=== PATIENT | female | born 1965 | race Two or more races ===

== ENCOUNTER 2024-09-26 18:04 | Emergency (ER) | payer MEDICAID, OTHER ==
[~2024-09-26] VITALS: Ht 152.4 cm; Wt 75.8 kg
--- NOTE | 2024-09-26 19:03 | ED.PDOC ---
History of Present Illness(SKN HPI Comments 59-year-old female with PMHx Sepsis presents with a chief complaint of wound to right buttock x onset 09/18/2024. Patient states that she thought maybe she had been bite by a spider and the area became red, puffy, and had pus drainage. Patient reports that it is painful for her to sit down. Patient mentions that she has had an abscess before and that they had to cut it and drain it before. Patient mentions that she also had some nausea and vomiting on 09/19/2024, but that has since subsided. No other symptoms or modifying factors present at this time. Chief Complaint: Abscess Time Seen by MD: 18:53 Primary Care Provider: HUMBERTO History of Present Illness: Medications, Allergies Allergies: Coded Allergies: Gabapentin (Verified Allergy, Unknown, 09/26/24) Lisinopril (Verified Allergy, Unknown, 09/26/24) Metformin (Verified Allergy, Unknown, 09/26/24) Home Meds Active Scripts Mupirocin Calcium (Topical) (MUPIROCIN) 2 % Cre, 2 % EX BID for 10 Days, #30 CRE Prov:RHETT ARTHUR MD 09/26/24 Clindamycin Hcl (Clindamycin Hcl) 300 Mg Cap, 1 CAP PO BID for 7 Days, #14 CAP Prov:RHETT ARTHUR MD 09/26/24 Information Source: Patient Mode of Arrival: Ambulatory Severity: Moderate Timing: Days Duration: Since onset Prehospital treatment: None Location: Buttock (RIGHT) Mechanism: Spontaneous Onset Developed: Generalized erythema Object: None Condition of Object: None Wound Type: Abscess Immunization Status of Animal: NA Tetanus: Unknown History of: None Associated Signs and Symptoms: N/V, Redness, Pus Past Medical History Past Medical History (Other): SEPSIS Surgical History: Denies all surgeries PRORATION 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 Family History Family History: Reviewed,noncontributory to illness Social History Smoker: Non-Smoker Alcohol: Denies ETOH Use Drugs: Denies Drug Use Lives In: Home Constitutional: denies: chills, diaphoresis, fatigue, fever, malaise, sweats, weakness, others EENTM: denies: blurred vision, double vision, ear bleeding, ear discharge, ear drainage, ear pain, ear ringing, eye pain, eye redness, hearing loss, mouth pain, mouth swelling, nasal discharge, nose bleeding, nose congestion, nose pain, photophobia, tearing, throat pain, throat swelling, voice changes, others Respiratory: denies: cough, hemoptysis, orthopnea, SOB at rest, shortness of breath, SOB with excertion, stridor, wheezing, others Cardiovascular: denies: chest pain, dizzy spells, diaphoresis, Dyspnea on exertion, edema, irregular heart beat, left arm pain, lightheadedness, palpitations, PND, syncope, others Gastrointestinal: denies: abdomen distended, abdominal pain, blood streaked bowels, constipated, diarrhea, dysphagia, difficulty swallowing, hematemesis, melena, nausea, poor appetite, poor fluid intake, rectal bleeding, rectal pain, vomiting, others Genitourinary: denies: abnormal vagina bleeding, burning, dyspareunia, dysuria, flank pain, frequency, hematuria, incontinence, pain, , vagina discharge, urgency, others Neurological: denies: dizziness, fainting, headache, left sided numbness, left sided weakness, numbness, paresthesia, pre-existing deficit, right sided numbness, right sided weakness, seizure, speech problems, tingling, tremors, weakness, others Musculoskeletal: denies: back pain, gout, joint pain, joint swelling, muscle pain, muscle stiffness, neck pain, others Integumetry: reports: wounds (RIGHT BUTTOCK); denies: bruises, change in color, change in hair/nails, dryness, laceration, lesions, lumps, rash, others Allergic/Immunocompromised: denies: Difficulty Healing, Frequent Infections, Hives, Itching, others Hematologic/Lymphatic: denies: anemia, blood clots, easy bleeding, easy bruising, swollen glands, others Endocrine: denies: excessive hunger, excessive sweating, excessive thirst, excessive urination, flushing, intolerance to cold, intolerance to heat, unexplained weight gain, unexplained weight loss, others Psychiatric: denies: anxiety, bipolar disorder, depression, hopeless, panic disorder, schizophrenia, sleepless, suicidal, others All Other Systems: Reviewed and Negative Physical Exam General Appearance: No Apparent Distress, Normal HEENT: Normal ENT Inspection, Pharynx Normal, TMs Normal Neck: Full Range of Motion, Non-Tender, Normal, Normal Inspection Respiratory: Chest Non-Tender, Lungs Clear, No Accessory Muscle Use, No Respiratory Distress, Normal Breath Sounds Cardiovascular: No Edema, No JVD, No Murmur, No Gallop, Normal Peripheral Pulses, Regular Rate/Rhythm Breast Exam: Deferred Gastrointestinal: No Organomegaly, Non Tender, No Pulsatile Mass, Normal Bowel Sounds, Soft Genitalia: Deferred Pelvic: Deferred Rectal: Deferred Extremities: No calf tenderness, Normal capillary refill, Normal inspection, Normal range of motion, Non-tender, No pedal edema Musculoskeletal : Apperance: Normal Neurologic: Alert, street light mechanic II-XII nml as Tested, No Motor Deficits, Normal Affect, Normal Mood, No Sensory Deficits Cerebellar Function: Normal Reflexes: Normal Skin: Dry, Normal Color, Warm Lymphatic: No Adenopathy Was a procedure done? Was a procedure done?: Yes Sedation Sedation?: No Informed consent obtained: Yes Incision and Drainage Incision and Drainage: Abscess Anesthetic: Lidocaine Preparation: Betadine Incision and Wound: Pus, Blood Informed consent obtained: Yes Risks/benefits/alt described: Yes X-Ray, Labs, Meds, VS Vital Signs Date Time Temp Pulse Resp B/P (MAP) Pulse Ox O2 Delivery O2 Flow Rate FiO2 09/26/24 20:38 102 20 152/84 (106) 98 09/26/24 20:38 95 09/26/24 18:39 97.9 107 18 151/70 (97) 97 Lab Test 09/26/24 18:28 Range/Units POC Glucose 286 H 70-106 mg/dl Time of 1ST Reevaluation: 19:23 Reevaluation 1ST: Unchanged Time of 2ND Reevaluation: 20:00 Reevaluation 2ND: Improved Patient Education/Counseling: Diagnosis, Treatment, Prognosis Family Education/Counseling: No Family Present Departure 1 Departure Time of Disposition: 20:00 Impression: Primary Impression: Abscess of right buttock Disposition: 01 HOME / SELF CARE / HOMELESS Condition: Stable e-Prescriptions Mupirocin Calcium (Topical) (MUPIROCIN) 2 % Cre 2 % EX BID for 10 Days, #30 CRE Prov: RHETT ARTHUR MD 09/26/24 Clindamycin Hcl (Clindamycin Hcl) 300 Mg Cap 1 CAP PO BID for 7 Days, #14 CAP Prov: RHETT ARTHUR MD 09/26/24 Discharged With: Self Critical Care Note Critical Care Time?: No Stability Stability form required: No I personally scribed for RHETT ARTHUR MD ([email or web address]) on 09/26/24 at 19:03. Electronically submitted by Vincent Field ([email or web address]). RHETT ARTHUR MD Sep 26, 2024 19:03
[2024-09-26] MEDS ORDERED: CLIN1CAP70 PO (19:15)
[2024-09-26] MEDS ORDERED: MUPI2CRE17 EX (19:15)
[2024-09-26 20:38] VITALS: BP 152/84; PULSE 95; RESP 20; O2SAT 98
== END 2024-09-26 20:46 | disposition home or self-care (01) ==
LOC: ER 18:04
DX: L02.31 Cutaneous abscess of buttock (principal); Z88.8 Allergy status to other drugs, medicaments and biological substances; Z79.899 Other long term (current) drug therapy
CPT/HCPCS: 10060; 82962